=== PATIENT | female | born 1965 | race Caucasian/White ===

== ENCOUNTER 2022-02-23 09:42 | Day surgery (SDC) | payer MEDICAID ==
[~2022-02-23] VITALS: Ht 165.1 cm; Wt 63.6 kg
[2022-02-23 09:53] VITALS: BP 120/81
[2022-02-23] MEDS ORDERED: fentaNYL/PF 50MCG/1 ML 2ML syringe ONE (10:01)
[2022-02-23] MEDS ORDERED: LIDOcaine Viscous 15ml cup ONE (10:01)
[2022-02-23] MEDS ORDERED: MIDAZolam 1 MG/ML 5ML VIAL ONE (10:01)
[2022-02-23] MEDS ORDERED: IRON PO (10:29)
[2022-02-23] MEDS ORDERED: ASHW500C PO (10:34)
[2022-02-23] MEDS ORDERED: gas relief PO (10:36)
[2022-02-23] MEDS ORDERED: FAMO-117 PO (10:37)
[2022-02-23] MEDS ORDERED: FLUO20CA39 PO (10:37)
[2022-02-23] MEDS ORDERED: VITAMIN E PO (10:38)
[2022-02-23] MEDS ORDERED: UBID100C16 PO (10:39)
[2022-02-23] MEDS ORDERED: MULT-1141 PO (10:41)
[2022-02-23 11:27] VITALS: BP 103/67
[2022-02-23 11:37] VITALS: BP 105/70
[2022-02-23 11:47] VITALS: BP 107/73
[2022-02-23 11:57] VITALS: BP 108/74
== END 2022-02-23 12:05 | disposition home or self-care (01) ==
LOC: GI LAB 09:42
PROVIDERS: ATTEND Internal Medicine Gastroenterology
DX: K92.1 Melena (principal); R12 Heartburn; K63.5 Polyp of colon; D12.3 Benign neoplasm of transverse colon; K57.30 Diverticulosis of large intestine without perforation or abscess without bleeding; K64.8 Other hemorrhoids; K21.00 Gastro-esophageal reflux disease with esophagitis, without bleeding; K22.89 Other specified disease of esophagus; K29.50 Unspecified chronic gastritis without bleeding; K29.80 Duodenitis without bleeding; J45.909 Unspecified asthma, uncomplicated; Z79.899 Other long term (current) drug therapy; Z88.5 Allergy status to narcotic agent; Z88.8 Allergy status to other drugs, medicaments and biological substances; Z88.0 Allergy status to penicillin
CPT/HCPCS: 43239; 45380; 45385; 99152; 99153; C1773; J2250; J3010; J7030; Z7512; A4620